=== PATIENT | female | born 1935 | race African-American/Black ===

== ENCOUNTER → 2017-11-12 10:45 | Outpatient (CLI) | payer MEDICARE, BC ==
--- NOTE | ~2017-11-12 | HEMODYNAMI ---
PATIENT:PATRICIA HELTON MEDICAL RECORD: [id number] : 31 LOCATION:PIPE ADMISSION DATE: 11/12/17 Generatedon:11/12/201712:50 Patient name: PATRICIA HELTON Patient #: [id number] SSN: : 1935 Date of study: 11/12/2017 Page: Of Hemodynamic Procedure Report Patient Data Patient Demographics Procedure consent was obtained First Name: PATRICIA Gender: Female Last Name: SUNITHA : 1935 Patient #: [id number] Age: 82 year(s) Race: Black Additional ID: [id number] Contact details Address: [address] [place] [address] [place] State: [place] City: [place] Zip code: [address] Admission Admission Data Admission Date: 11/12/2017 Admission Time: 10:45 Procedure Procedure Types Cath Procedure Peripheral Cath Diagnostic Procedure Gastric G Tube Replacement Procedure Description Procedure Date Procedure Date: 11/12/2017 Procedure Start Time: 12:30 Procedure End Time: 12:49 Procedure Staff Name Function Haritha Hamilton MD Performing Physician Patrick Sheffield RT Monitor Jyoti Mayorga RT Scrub Savanah Xiong RN Nurse Procedure Data Cath Procedure Fluoroscopy Diagnostic fluoroscopy Total fluoroscopy Time: 2.6 time: 2.6 min min Diagnostic fluoroscopy Total fluoroscopy dose: 13 dose: 13 mGy mGy Contrast Material Contrast Material Type Amount (ml) Isovue 300 15 Diagnostic catheters Device Type Used For End Catheter Placement Merit Impress KA 2 5Fr 40CM catheter ([id number]) Procedure Medications Medication Administration Route Dosage Heparin Flush Bag added to field 1 bags (1000units/500ml NS) Lidocaine 1% added to field 20 Hemodynamics Rest Pre Cath Intra NCS Post Cath Medications Time Medication Route Dose Delivered Reason Notes Effectiveness by 12:26:10 Lidocaine 1% added 20ml to vial field 12:26:52 Heparin Flush added 1 Bag to bags (1000units/500ml field NS) Procedure Log Time Note 12:16:17 Patrick Sheffield RT (R) (CV) sent for patient. Start room use. 12:16:26 Time tracking: Regular hours (M-F 7:00 - 5:00) 12:17:04 Signed procedure consent form obtained from patient. 12:17:06 Pre-procedure instructions explained to patient. 12:17:09 Use device set IR Diagnostic 12:17:10 Sterile Angiographic Pack opened to sterile field. 12:17:12 Bag Decanter (2002S) opened to sterile field. 12:17:35 Patient pain scale 0/10 NO PAIN. 12:17:37 Pre-op teaching completed and patient verbalized understanding. 12:17:44 Left abdomen area was prepped with chlora-prep and draped in sterile fashion 12:26:10 Lidocaine 1% 20ml vial added to field was administered by ; ; 12:26:52 Heparin Flush Bag (1000units/500ml NS) 1 bags added to field was administered by ; ; 12:27:00 Physician arrived 12:27:45 --------ALL STOP TIME OUT------ 12:27:47 Final Timeout: patient, procedure, and site verified with staff and physician. All members of the team are in agreement. 12:28:08 Sedation plan: None Medication:Lidocaine 12:28:11 Sharps counted by scrub and verified . 12:28:15 Procedure started. 12:28:16 Full Disclosure recording started 12:29:37 Left abdomen site verified by team. 12:30:07 Local anesthetic to Abdominal area with Lidocaine 1% by Haritha Hamilton MD.INITIAL ACCESS ONLY 12:30:10 GLIDE WIRE ANGLE 180cm ([id number]) opened to sterile field. 12:31:01 A Merit Impress KA 2 5Fr 40CM catheter ([id number]) was advanced over the wire and used for . 12:36:55 GASTROSTOMY 16Fr Tri-Funnel Tube (449604) opened to sterile field. 12:37:49 Procedure ended.(Physican Out) 12:38:58 Fluoroscopy time 02.60 minutes. 12:39:06 Fluoroscopy dose: 13 mGy 12:39:06 Flurop Dose total: 13 12:40:26 Contrast amount:Isovue 300 15ml. 12:40:34 Sharps counted by scrub and verified . 12:41:05 Post-op/insertion site Left Abdominal area dressed using A DRAINAGE SPONGE. 12:43:13 Post procedure instruction explained to patient.Patient verbalizes understanding. 12:43:15 Patient needs reinforcement of post procedure teaching. 12:43:25 Procedure and supply charges have been captured, reviewed, submitted and are correct. 12:48:44 Report given to Other. 12:48:53 Patient transfered to Other with Wheelchair. PATIENT TRANSFERED TO RESIDENTIAL. 12:49:37 Procedure ended. 12:49:37 Full Disclosure recording stopped Device Usage Item Name Manufacture Quantity Catalog Hospital Part Current Minimal Lot# / Number Charge Number Stock Stock Serial# Code Sterile Cardinal 1 [id number] 5 Angiographic Health Pack Bag Decanter Microtek 1 [id number] 61012 916356 5 () Medical Inc. Merit Merit 1 [id number] [id number] 065037 5 Impress KA 2 Medical 5Fr 40CM catheter ([id number]) GLIDE WIRE Terumo 1 [id number] 618920 965079 5 ANGLE 180cm (NL9530) GASTROSTOMY Bard 1 [id number] 812010 273737 5 18Fr Tri-Funnel Tube (125148) Signature Audit [place] Stage Time Signature Unsigned Intra-Procedure 11/12/2017 Jyoti 12:50:03 PM Mukesh ORTIZ (R) (CV) Signatures Monitor : Patrick Signature : Nettie RT Date : Time : [address] [address]
== END | disposition home or self-care (01) ==
LOC: D.RAD 10:45 → D.SP 11:00 → D.RAD 12:00
DX: R13.10 Dysphagia, unspecified (principal); R63.4 Abnormal weight loss; I10 Essential (primary) hypertension; K21.9 Gastro-esophageal reflux disease without esophagitis; K94.29 Other complications of gastrostomy

== ENCOUNTER → 2017-11-14 07:23 | Outpatient (CLI) | payer MEDICARE, BC ==
--- NOTE | ~2017-11-14 | HEMODYNAMI ---
PATIENT:PATRICIA HELTON MEDICAL RECORD: [id number] : 31 [id number] ADMISSION DATE: 11/14/17 Generatedon:11/14/20178:19 Patient name: PATRICIA HELTON Patient #: [id number] SSN: : 1935 Date of study: 11/14/2017 Page: Of Hemodynamic Procedure Report Patient Data Patient Demographics Procedure consent was obtained First Name: PATRICIA Gender: Female Last Name: SUNITHA : 1935 Patient #: [id number] Age: 82 year(s) Race: Black Additional ID: [id number] Contact details Address: [address] [place] [address] [place] State: [place] City: [place] Zip code: [address] Admission Admission Data Admission Date: 11/14/2017 Admission Time: 7:23 Procedure Procedure Types Cath Procedure Peripheral Cath Diagnostic Procedure Gastric G Tube Placement Procedure Description Procedure Date Procedure Date: 11/14/2017 Procedure Start Time: 8:10 Procedure Staff Name Function Humberto Santos MD Performing Physician Patrick Sheffield RT Monitor Radha Sykes RT Scrub Rick Bermudez RN Nurse Procedure Data Cath Procedure Fluoroscopy Diagnostic fluoroscopy Total fluoroscopy Time: 0.5 time: 0.5 min min Diagnostic fluoroscopy Total fluoroscopy dose: 3 dose: 3 mGy mGy Contrast Material Contrast Material Type Amount (ml) Isovue 300 25 Hemodynamics Rest Pre Cath Intra NCS Post Cath Procedure Log Time Note 8:00:27 Time tracking: Regular hours (M-F 7:00 - 5:00) 8:00:28 Patrick Sheffield RT (R) (CV) sent for patient. Start room use. 8:00:43 Patient received from Other to IR Alert and oriented. Tansferred to table in Supine position. 8:00:46 Signed procedure consent form obtained from patient. 8:00:47 Pre-procedure instructions explained to patient. 8:00:51 Use device set IR Diagnostic 8:00:52 Sterile Angiographic Pack opened to sterile field. 8:00:53 Bag Decanter (2002S) opened to sterile field. 8:00:58 Pre-op teaching completed and patient verbalized understanding. 8:01:04 Patient pain scale 0/10 no pain. 8:01:19 Left abdomen area was prepped with chlora-prep and draped in sterile fashion 8:10:17 --------ALL STOP TIME OUT------ 8:10:18 Final Timeout: patient, procedure, and site verified with staff and physician. All members of the team are in agreement. 8:10:26 Sedation plan: Local Anesthetic Medication:Lidocaine 8:10:43 Local anesthetic to Abdominal area with Lidocaine 1% by Humberto Santos MD.INITIAL ACCESS ONLY 8:14:54 ROADRUNNER .035 145 glide wire ([id number]) opened to sterile field. 8:15:00 GASTROSTOMY 20Fr Tri-Funnel Tube (180834) opened to sterile field. 8:18:02 20 fr. g-tube placed 8:18:09 Procedure ended.(Physican Out) 8:18:20 Fluoroscopy time 00.50 minutes. 8:18:26 Fluoroscopy dose: 3 mGy 8:18:26 Flurop Dose total: 3 8:18:46 Contrast amount:Isovue 300 25ml. 8:19:28 Procedure and supply charges have been captured, reviewed, submitted and are correct. 8:19:31 Report given to Other. 8:19:35 Patient transfered to Other with Wheelchair. Device Usage Item Name Manufacture Quantity Catalog Hospital Part Current Minimal Lot# / Number Charge Number Stock Stock Serial# Code Sterile Cardinal 1 [id number] 5 Angiographic Health Pack Bag Decanter Microtek 1 139211 35420 668251 5 () Medical Inc. [facility] 1 [id number] 474415 602822 902197 5 .035 145 glide wire (T65245) GASTROSTOMY Bard 1 643325 988448 020611 5 20Fr Tri-Funnel Tube (932509) Signature Audit [place] Stage Time Signature Unsigned Intra-Procedure 11/14/2017 Patrick 8:19:54 AM [place] RT (R) (CV) Signatures Monitor : Patrick Signature : Nettie RT Date : Time : [address] [place] [address]
== END | disposition home or self-care (01) ==
LOC: D.RAD 07:23
DX: R13.12 Dysphagia, oropharyngeal phase (principal)

== ENCOUNTER → 2018-02-16 08:47 | Outpatient (CLI) | payer MEDICARE, BC ==
--- NOTE | ~2018-02-16 | HEMODYNAMI ---
PATIENT:PATRICIA HELTON MEDICAL RECORD: [id number] : 31 LOCATION:D.SP ADMISSION DATE: 02/16/18 Generatedon:02/16/20189:46 Patient name: PATRICIA HELTON Patient #: [id number] SSN: : 1935 Date of study: 02/16/2018 Page: Of Hemodynamic Procedure Report Patient Data Patient Demographics Procedure consent was obtained First Name: PATRICIA Gender: Female Last Name: SUNITHA : 1935 Patient #: [id number] Age: 83 year(s) Race: Black Additional ID: [id number] Contact details Address: [address] [place] [address] [place] State: [place] City: [place] Zip code: [address] Admission Admission Data Admission Date: 02/16/2018 Admission Time: 8:47 Procedure Procedure Types Cath Procedure Peripheral Cath Diagnostic Procedure Miscellaneous Procedure Description Procedure Date Procedure Date: 02/16/2018 Procedure Start Time: 9:34 Procedure Staff Name Function Pascual Lozoya MD Performing Physician Patrick Sheffield RT Monitor Jyoti Mayorga RT Scrub Lara Cabrera RN Nurse Procedure Data Cath Procedure Fluoroscopy Diagnostic fluoroscopy Total fluoroscopy Time: 1.1 time: 1.1 min min Diagnostic fluoroscopy Total fluoroscopy dose: 10 dose: 10 mGy mGy Contrast Material Contrast Material Type Amount (ml) Isovue 300 15 Hemodynamics Rest Pre Cath Intra NCS Post Cath Procedure Log Time Note 9:13:12 Jyoti Mayorga RT (R) (CV) sent for patient. Start room use. 9:13:21 Time tracking: Regular hours (M-F 7:00 - 5:00) 9:13:36 Patient received from Outpatients to IR Alert and oriented. Tansferred to table in Supine position. 9:13:38 Correct patient and procedure confirmed by team. 9:13:43 Signed procedure consent form obtained from patient. 9:13:44 ECG and BP/O2 sat monitors applied to patient. 9:13:45 9:13:48 Pre-procedure instructions explained to patient. 9:13:48 Pre-op teaching completed and patient verbalized understanding. 9:13:54 Use device set IR Diagnostic 9:13:55 Sterile Angiographic Pack opened to sterile field. 9:13:58 Bag Decanter () opened to sterile field. 9:14:12 Patient NPO since Midnight. 9:18:40 Alarms reviewed by R. N. 9:18:41 Sharps counted by scrub and verified by R.N. 9:18:50 Left abdomen area was prepped with chlora-prep and draped in sterile fashion 9:33:33 Physician arrived 9:33:34 --------ALL STOP TIME OUT------ 9:33:35 Final Timeout: patient, procedure, and site verified with staff and physician. All members of the team are in agreement. 9:33:43 Left abdomen site verified by team. 9:33:48 Sedation plan: Local Anesthetic Medication:Lidocaine 9:33:58 Procedure started. 9:33:58 Full Disclosure recording started 9:34:03 Local anesthetic to Abdominal area with Lidocaine 1% by Pascual Lozoya MD.INITIAL ACCESS ONLY 9:36:00 GASTROSTOMY 20Fr Tri-Funnel Tube (188942) opened to sterile field. 9:36:01 GLIDE WIRE Angled Super Stiff 180cm (PW7343) opened to sterile field. 9:42:49 Procedure ended.(Physican Out) 9:44:22 Fluoroscopy time 01.10 minutes. 9:44:25 Fluoroscopy dose: 10 mGy 9:44:25 Flurop Dose total: 10 9:44:38 Contrast amount:Isovue 300 15ml. 9:44:41 Sharps counted by scrub and verified by R.N. 9:44:47 Post Abdominal area:stable 9:45:58 Report given to Other. 9:46:02 Patient transfered to Other with Wheelchair. Device Usage Item Name Manufacture Quantity Catalog Hospital Part Current Minimal Lot# / Number Charge Number Stock Stock Serial# Code Sterile Cardinal 1 [id number] 470386 5 Angiographic Health Pack Bag Decanter Microtek 1 [id number] 408344 59410 835476 5 () Medical Inc. GASTROSTOMY Bard 1 085007 669550 367094 5 20Fr Tri-Funnel Tube (330686) GLIDE WIRE Terumo 1 [id number] 637065 481421 5 Angled Super Stiff 180cm (FM6699) Signature Audit [place] Stage Time Signature Unsigned Intra-Procedure 02/16/2018 Patrick 9:46:14 AM Nettie RT (R) (CV) Signatures Monitor : Patrick Signature : Nettie RT Date : Time : [address] [address]
[~2018-02-16 08:47] MED LIST: ATIVAN0.5 MG PO; BAYER CHEWABLE81 MG PO; FUROSEMIDE20 MG PO; SYNTHROID112 MCG PO
[2018-03-02 13:27] VITALS: BMI 23.4
== END | disposition home or self-care (01) ==
LOC: D.SP 08:47 → D.RAD 11:00
DX: K94.13 Enterostomy malfunction (principal); Z01.812 Encounter for preprocedural laboratory examination

== ENCOUNTER 2018-02-27 22:51 | Inpatient (IN) | payer MEDICARE ==
[~2018-02-27] VITALS: Ht 152.4 cm; Wt 54.4 kg
--- NOTE | ~2018-02-27 | HEMODYNAMI ---
PATIENT:PATRICIA HELTON MEDICAL RECORD: [id number] : 31 LOCATION:[address] ADMISSION DATE: 02/28/18 Generatedon:03/02/20188:50 Patient name: PATRICIA HELTON Patient #: [id number] SSN: : 1935 Date of study: 03/02/2018 Page: Of Hemodynamic Procedure Report Patient Data Patient Demographics Procedure consent was obtained First Name: PATRICIA Gender: Female Last Name: SUNITHA : 1935 Patient #: [id number] Age: 83 year(s) Race: Black Additional ID: [id number] Contact details Address: [address] [place] [address] [place] State: [place] City: [place] Zip code: [address] Past Medical History Allergies Allergen Reaction Date Comments Reported Penicillins Other 03/02/2018 Admission Admission Data Admission Date: 02/28/2018 Admission Time: 0:14 Room #: D.2128 Procedure Procedure Types Cath Procedure Peripheral Cath Diagnostic Procedure Gastric J- Tube Replacement/Exchange Procedure Description Procedure Date Procedure Date: 03/02/2018 Procedure Start Time: 8:28 Procedure Staff Name Function Humberto Santos MD Performing Physician Jyoti Mayorga RT Monitor Lara Cabrera RN Nurse Savanah Xiong RN Nurse Patrick Sheffield RT Scrub Procedure Data Cath Procedure Fluoroscopy Diagnostic fluoroscopy Total fluoroscopy Time: 0 time: 0 min min Diagnostic fluoroscopy Total fluoroscopy dose: 16 dose: 16 mGy mGy Contrast Material Contrast Material Type Amount (ml) Isovue 300 55 Diagnostic catheters Device Type Used For End Catheter Placement Merit Impress KA2 5Fr 65CM catheter ([id number]) Hemodynamics Rest Pre Cath Intra NCS Post Cath Procedure Log Time Note 8:10:00 Patrick Sheffield RT (R) (CV) sent for patient. Start room use. 8:10:04 Time tracking: Regular hours (M-F 7:00 - 5:00) 8:10:16 Plan of Care:Hemodynamics will remain stable., Cardiac rhythm will remain stable., Comfort level will be maintained., Respiratory function will remain adequate., Patient/ family verbilizes understanding of procedure., Procedure tolerated without complication., Recovers from procedure without complications.. 8:11:34 Patient received from Med II to IR Alert and oriented. Tansferred to table in Supine position. 8:11:37 Warm blankets applied for patient comfort. 8:12:09 Correct patient and procedure confirmed by team. 8:12:16 Signed procedure consent form obtained from verbally. 8:12:31 8:12:43 Pre-procedure instructions explained to patient. 8:12:49 Pre-op teaching completed and patient verbalized understanding. 8:12:58 Bag Decanter (2002S) opened to sterile field. 8:12:59 Sterile Angiographic Pack opened to sterile field. 8:13:04 Family unavailable. 8:13:47 Patient allergic to Penicillins 8:14:00 Is the patient allergic to Iodine/contrast media? No. 8:17:40 Left Abdomen was prepped with betadine and draped in sterile fashion. 8:17:44 Alarms reviewed by Debbie Anand. 8:17:48 Sharps counted by scrub and verified . 8:18:53 Use device set IR Diagnostic 8:27:31 Physician arrived 8:27:32 --------ALL STOP TIME OUT------ 8:27:33 Final Timeout: patient, procedure, and site verified with staff and physician. All members of the team are in agreement. 8:27:46 Left abdomen site verified by team. 8:28:02 Sedation plan: None Medication:Lidocaine 8:28:11 Procedure started. 8:28:11 Full Disclosure recording started 8:28:28 Local anesthetic to Abdominal area with Lidocaine 1% by Humberto Santos MD.INITIAL ACCESS ONLY 8:28:35 JEJUNAL 18Fr 45cm Tube (781431) opened to sterile field. 8:28:51 ROADRUNNER .035 145 glide wire (T51533) opened to sterile field. 8:29:10 The roadrunner wire is advanced thru the existing tube. 8:31:05 A Merit Impress KA2 5Fr 65CM catheter ([id number]) was advanced over the wire and used for . 8:33:18 Contast is injected thru the KA2 cath to verify placement. 8:37:23 GLIDE CATHETER 5FR ANGLED 65cm (CG507) opened to sterile field. 8:41:22 The new 20 fr J- tube is left in placed. 8:42:36 Procedure ended.(Physican Out) 8:43:30 Post-op/insertion site Left Abdominal area dressed using a 4 x 4 . 8:43:32 Contrast amount:Isovue 300 55ml. 8:43:49 Fluoroscopy time 00.00 minutes. 8:43:55 Flurop Dose total: 16 8:43:55 Fluoroscopy dose: 16 mGy 8:43:58 Sharps counted by scrub and verified . 8:44:35 Post Abdominal area:stable 8:44:41 Post procedure instruction explained to patient.Patient verbalizes understanding. 8:44:42 Patient needs reinforcement of post procedure teaching. 8:45:16 Procedure and supply charges have been captured, reviewed, submitted and are correct. 8:47:31 See physician's report for complete and final results. 8:47:36 Report given to Med II. 8:47:44 Patient transfered to Med II with Bed. Device Usage Item Name Manufacture Quantity Catalog Hospital Part Current Minimal Lot# / Number Charge Number Stock Stock Serial# Code Bag Decanter Microtek 1 [id number] 86916 [id number] 5 () Medical Inc. Sterile Cardinal 1 [id number] 823649 370344 5 Angiographic Health Pack JEJUNAL 18Fr [place] 1 0250-18 [id number] 701378 488526 5 45cm Tube Medypal (919900) ROADRUNNER [employer] 1 [id number] 668501 383971 720554 5 [id number] .035 145 glide wire (K52172) Merit Merit 1 [id number] 046631 889900 5 Impress KA2 Medical 5Fr 65CM catheter ([id number]) GLIDE Terumo 1 [id number] 621959 229449 5 CATHETER 5FR ANGLED 65cm (CG507) Signature Audit [place] Stage Time Signature Unsigned Intra-Procedure 03/02/2018 Jyoti 8:50:03 AM Mukesh Green) (CV) Signatures Monitor : Jyoti Signature : Mukesh RT Date : Time : [address] [place] [address]
[2018-02-27] MEDS ORDERED: FUROSEMIDE20 MG PO (23:03)
[2018-02-27] MEDS ORDERED: BAYER CHEWABLE81 MG PO (23:04)
[2018-02-27] MEDS ORDERED: SYNTHROID112 MCG PO (23:04)
[2018-02-27 23:37] LABS: BASOPHILS 0.6 % (0-2); EOSINOPHILS 3.6 % (0-7); HEMATOCRIT 40.5 % (36.0-48.0); HEMOGLOBIN 13.2 g/dL (12-16); IMMATURE GRANULOCYTES 0.2 % (0-5); LYMPHOCYTES 31.1 % (15-50); MCHC 32.6 g/dL (31.0-37.0); MCV 98.3 fL (80.0-100.0); MONOCYTES 10.3 % (2-11); NEUTROPHILS 54.2 % (40-80); PLATELET COUNT 357 10x3/uL (130-400); RBC 4.12 10x6/uL (4.00-5.40); WBC 8.5 10x3/uL (4.8-10.8)
[2018-02-27 23:40] LABS: APTT 27.5 SECONDS (22.8-39.4); INR 0.88 (0.85-1.17); PROTIME 11.5 SECONDS (11.6-15.0)
[2018-02-27 23:41] LABS: ALKALINE PHOSPHATASE 78 U/L (46-116); ALT (SGPT) 22 U/L (10-68); BILIRUBIN - TOTAL 0.19 mg/dL (0.2-1.3); CALC OSMOLALITY 277 mosm/kg (275-300); CALCIUM 8.7 mg/dL (8.5-10.1); CARBON DIOXIDE 34.1 mmol/L (21.0-32.0); CHLORIDE - SERUM 100 mmol/L (98-107); CREATININE - SERUM 0.7 mg/dL (0.6-1.3); GLUCOSE 87 mg/dL (74-106); POTASSIUM - SERUM 4.1 mmol/L (3.5-5.1); PROTEIN - SERUM 6.7 g/dL (6.4-8.2); SODIUM 134 mmol/L (136-145); UREA NITROGEN 44 mg/dL (7-18); eGFR NON AFRICAN AMERICAN 84 mL/min (90-120)
[2018-02-28 00:19] LABS: APPEARANCE CLEAR (CLEAR); BILIRUBIN NEGATIVE (NEGATIVE); COLOR YELLOW (YELLOW); GLUCOSE NEGATIVE (NEGATIVE); KETONE SMALL mg/dL (NEGATIVE); NITRITE NEGATIVE (NEGATIVE); PROTEIN NEGATIVE (NEGATIVE); UROBILINOGEN NORMAL (NORMAL)
[2018-02-28 03:47] VITALS: BP 124/70; BMI 21.5
[2018-02-28 06:37] VITALS: BP 153/54
[2018-02-28 08:00] VITALS: BP 119/52
[2018-02-28 10:51] VITALS: BP 122/58
[2018-02-28 16:11] VITALS: BP 113/55
[2018-02-28 22:50] VITALS: BP 132/82
[2018-03-01 06:08] LABS: BASOPHILS 0.2 % (0-2); EOSINOPHILS 2.5 % (0-7); HEMATOCRIT 35.2 % (36.0-48.0); HEMOGLOBIN 11.2 g/dL (12-16); IMMATURE GRANULOCYTES 0.1 % (0-5); LYMPHOCYTES 18.6 % (15-50); MCH 31.5 pg (26.0-34.0); MCHC 31.8 g/dL (31.0-37.0); MCV 99.2 fL (80.0-100.0); MEAN PLATELET VOLUME 10.2 fL (7.4-10.4); MONOCYTES 12.4 % (2-11); NEUTROPHILS 66.2 % (40-80); PLATELET COUNT 334 10x3/uL (130-400); RBC 3.55 10x6/uL (4.00-5.40); WBC 8.8 10x3/uL (4.8-10.8)
[2018-03-01 06:28] LABS: CALC OSMOLALITY 283 mosm/kg (275-300); CALCIUM 8.1 mg/dL (8.5-10.1); CARBON DIOXIDE 30.8 mmol/L (21.0-32.0); CHLORIDE - SERUM 106 mmol/L (98-107); CREATININE - SERUM 0.6 mg/dL (0.6-1.3); GLUCOSE 81 mg/dL (74-106); MAGNESIUM - SERUM 1.9 mg/dL (1.8-2.4); POTASSIUM - SERUM 3.8 mmol/L (3.5-5.1); SODIUM 141 mmol/L (136-145); eGFR NON AFRICAN AMERICAN > 90 mL/min (90-120)
[2018-03-01 06:52] LABS: PHOSPHOROUS 3.6 mg/dL (2.5-4.9)
[2018-03-01 06:57] LABS: UREA NITROGEN 25 mg/dL (7-18)
[2018-03-01 08:00] VITALS: BP 155/84
[2018-03-01 08:06] VITALS: BP 103/43
[2018-03-01 11:58] VITALS: BP 140/76
[2018-03-01 17:03] VITALS: BP 151/75
[2018-03-02 00:11] VITALS: BP 139/71
[2018-03-02 04:00] VITALS: BP 150/74
[2018-03-02 06:01] LABS: BASOPHILS 0.4 % (0-2); EOSINOPHILS 2.6 % (0-7); HEMATOCRIT 35.7 % (36.0-48.0); HEMOGLOBIN 11.6 g/dL (12-16); IMMATURE GRANULOCYTES 0.1 % (0-5); LYMPHOCYTES 17.5 % (15-50); MCHC 32.5 g/dL (31.0-37.0); MCV 98.3 fL (80.0-100.0); MEAN PLATELET VOLUME 10.4 fL (7.4-10.4); MONOCYTES 10.2 % (2-11); NEUTROPHILS 69.2 % (40-80); PLATELET COUNT 334 10x3/uL (130-400); RBC 3.63 10x6/uL (4.00-5.40); RDW 14.7 % (11.5-14.5); WBC 8.5 10x3/uL (4.8-10.8)
[2018-03-02 06:38] LABS: ALBUMIN 2.6 g/dL (3.4-5.0); ALKALINE PHOSPHATASE 88 U/L (46-116); ALT (SGPT) 19 U/L (10-68); BILIRUBIN - TOTAL 0.48 mg/dL (0.2-1.3); CALC OSMOLALITY 282 mosm/kg (275-300); CALCIUM 8.5 mg/dL (8.5-10.1); CARBON DIOXIDE 27.7 mmol/L (21.0-32.0); CHLORIDE - SERUM 105 mmol/L (98-107); CREATININE - SERUM 0.6 mg/dL (0.6-1.3); GLUCOSE 75 mg/dL (74-106); POTASSIUM - SERUM 3.8 mmol/L (3.5-5.1); PROTEIN - SERUM 6.2 g/dL (6.4-8.2); SODIUM 141 mmol/L (136-145); UREA NITROGEN 22 mg/dL (7-18); eGFR NON AFRICAN AMERICAN > 90 mL/min (90-120)
[2018-03-02 13:27] VITALS: Ht 152.4 cm; Wt 54.4 kg
[2018-03-02] MEDS ORDERED: ATIVAN0.5 MG PO (14:41)
== END 2018-03-02 17:50 | DRG 394 ==
LOC: D.ER 22:51 → D.EDHOLD 02-28 00:14 → D.M2 02-28 00:14
PROVIDERS: Family Medicine; Specialist
PROC: 0D2DXUZ Change Feeding Device in Lower Intestinal Tract, External Approach (ICD-10-PCS; principal; 2018-03-02 08:28)
DX: K94.13 Enterostomy malfunction (principal); E46 Unspecified protein-calorie malnutrition; I10 Essential (primary) hypertension; I69.319 Unspecified symptoms and signs involving cognitive functions following cerebral infarction; I69.321 Dysphasia following cerebral infarction; Z68.21 Body mass index [BMI] 21.0-21.9, adult